=== PATIENT | female | born 1990 | race Caucasian/White ===

== ENCOUNTER → 2024-04-09 | Outpatient (CLI) | payer OTHER, MEDICAID, SELFPAY ==
[2024-04-10 09:52] LABS: BVAG Candida Positive (Negative); Bacterial Vaginosis Markers Positive (Negative); Candida glabrata Negative (Negative); Candida krusei PCR Negative (Negative); Trichomonas Negative (Negative)
== END | disposition home or self-care (01) ==
LOC: SLDO 15:43
PROVIDERS: Referring Provider Specialist; Visit Provider Specialist
DX: B37.89 Other sites of candidiasis (principal); N76.0 Acute vaginitis; A59.01 Trichomonal vulvovaginitis
CPT/HCPCS: 81514

== ENCOUNTER → 2024-06-17 | Outpatient (CLI) | payer OTHER, SELFPAY ==
[2024-06-18 10:13] LABS: BVAG Candida Negative (Negative); Bacterial Vaginosis Markers Positive (Negative); Candida glabrata Negative (Negative); Candida krusei PCR Negative (Negative); Trichomonas Negative (Negative)
== END | disposition home or self-care (01) ==
LOC: SLDO 14:16
PROVIDERS: Referring Provider Physician Assistant Medical; Visit Provider Physician Assistant Medical
DX: B37.89 Other sites of candidiasis (principal); N76.0 Acute vaginitis; A59.01 Trichomonal vulvovaginitis
CPT/HCPCS: 81514

== ENCOUNTER → 2024-08-03 | Outpatient (CLI) | payer OTHER, SELFPAY ==
[2024-08-04 07:18] LABS: BVAG Candida Negative (Negative); Bacterial Vaginosis Markers Positive (Negative); Candida glabrata Negative (Negative); Candida krusei PCR Negative (Negative); Trichomonas Negative (Negative)
== END | disposition home or self-care (01) ==
LOC: SLDO 15:44
PROVIDERS: Referring Provider Physician Assistant Medical; Visit Provider Physician Assistant Medical
DX: A59.01 Trichomonal vulvovaginitis (principal); B37.89 Other sites of candidiasis; N76.0 Acute vaginitis
CPT/HCPCS: 81514

== ENCOUNTER 2025-04-13 13:52 | Emergency (ER) | payer OTHER, MEDICAID, SELFPAY ==
[2025-04-13 14:37] VITALS: BP 128/75; PULSE 109; RESP 18; TEMP 36.6; O2SAT 99; BMI 19.2
--- NOTE | 2025-04-13 14:58 | PD.EDRME ---
Rapid Medical Screening Exam RME Arrival date/time: 04/13/25 13:52 Chief Complaint: Flu Like Symptoms Vital signs: Vital Signs Temperature 97.9 F 04/13/25 14:37 Pulse Rate 109 H 04/13/25 14:37 Respiratory Rate 18 04/13/25 14:37 Blood Pressure 128/75 04/13/25 14:37 Pulse Oximetry (%) 99 04/13/25 14:37 Oxygen Delivery Method Room Air 04/13/25 14:37 Pulse ox room air is 99% Vital signs reviewed by provider: Yes
--- NOTE | 2025-04-13 15:26 | XR_ITS ---
EXAMINATION: PA lateral chest 2 views TECHNIQUE: Upright PA lateral chest 2 views Date and time: April 13, 2025, 1551 hours, comparison March 16, 2019 INDICATIONS: Dizziness coughing today. FINDINGS: Normal heart size Lungs are clear Moderate hyperexpansion Intact osseous structures IMPRESSION: Moderate hyperexpansion No pneumonia or pulmonary edema
--- NOTE | 2025-04-13 15:29 | PD.EDURI ---
Upper Respiratory Inf. RME/HPI General Chief Complaint: Flu Like Symptoms Stated Complaint: Cough X 2 weeks, shaky, lightheaded Time Seen by Provider: 04/13/25 15:05 Source: patient Arrival date/time: 04/13/25 13:52 Mode of arrival: ambulatory Limitations: no limitations RME / HPI Complaint: cough and sore throat Onset (ago): week(s) (2 weeks) Duration: constant Severity: moderate Relieving factors: nothing Exacerbating factors: other (Coughing) Able to tolerate fluids by mouth: Yes Context: sick contacts RME / HPI Narrative: 04/13/25 13:52 Related Data Home Medications ?Medication ?Instructions ?Recorded ?Confirmed fexofenadine 180 mg tablet 180 mg PO QDAY 05/26/20 05/26/20 (Chelsy Allergy) gabapentin 300 mg tablet 300 mg PO QDAY 05/26/20 05/26/20 sertraline 100 mg tablet (Zoloft) 100 mg PO QDAY 05/26/20 05/26/20 Previous Rx's ?Medication ?Instructions ?Recorded hydrocodone 5 mg-acetaminophen 325 1 tab PO Q8H PRN pain #6 tabs 05/26/20 mg tablet ([facility]) promethazine-DM 6.25 mg-15 mg/5 mL 5 ml PO Q6H PRN cough #118 mL 04/13/25 oral syrup Allergies Allergy/AdvReac Type Severity Reaction Status Date / Time No Known Allergies Allergy Unknown Verified 04/13/25 13:56 Review of Systems Constitutional Constitutional: Reports system reviewed and no additional complaints, except as documented Eyes Eyes: Reports system reviewed and no additional complaints, except as documented, Denies dry eyes, Denies exophthalmos and Reports floaters Cardiovascular Cardiovascular: Denies chest pain with activity and Denies claudication Past Medical History Past Medical History Comments PMH COMMENT: No significant past medical history ED Exam Narrative Physical exam: Patient is alert and oriented. She is in no apparent distress. She does have shaking hands and this is left and right. Patient appears to be tearful. Otherwise clear to auscultation and the heart is regular rhythm and rate. The abdomen soft nontender without any apparent mass and there is no guarding as well as negative for rebound tenderness. General Limitations: Present no limitations General appearance: Present alert and in no apparent distress Head Head exam: Present atraumatic and normocephalic Eye Eye exam: Present normal appearance and EOMI ENT ENT exam: Present normal exam Neck Neck exam: Present normal inspection Chest Chest inspection: Present normal inspection Respiratory Respiratory exam: Present normal lung sounds bilaterally Cardiovascular Cardiovascular exam: Present regular rate and normal rhythm Abdominal Exam Abdominal exam: Present soft Rectal Exam Rectal exam: Present deferred Extremities Exam Extremities exam: Present normal inspection Back Exam Back exam: Present normal inspection Neurological Exam Neurological exam: Present alert and oriented X3 Psychiatric Psychiatric exam: Present normal affect and normal mood Skin Skin exam: Present warm, dry, intact and normal color Course Course Course Narrative: Patient will have a CBC, CMP, flu, UA, and a chest x-ray two-view. Quality Measures none Orders Category Date Time Status CXR2 [XR chest 2V] Stat Exams 04/13/25 15:26 Completed CBC Stat Lab 04/13/25 15:37 Completed CMP [Comprehensive Metabolic Panel] Stat Lab 04/13/25 15:37 Completed FLU A&B [Influenza A & B Rapid Panel] Stat Lab 04/13/25 15:45 Completed UA [Urinalysis] Stat Lab 04/13/25 15:52 Completed Ordered Vital Signs Vital signs: Vital Signs Temperature 97.9 F 04/13/25 14:37 Pulse Rate 109 H 04/13/25 14:37 Respiratory Rate 18 04/13/25 14:37 Blood Pressure 128/75 04/13/25 14:37 Pulse Oximetry (%) 99 04/13/25 14:37 Oxygen Delivery Method Room Air 04/13/25 14:37 Pulse ox room air is 99% Upper Respiratory Infection MDM Narrative MDM Narrative:: Patient will be informed of her labs and she will be discharged in no apparent distress the patient told me afterwards that she possibly might have taken too much cough medication and this could have contributed to her shakes as well as her anxiety although I will not diagnose her as having anxiety. She has to follow-up with her primary care physician within 1 week. Patient data External records reviewed:: Other (specify) (NA) Clinical information provided by:: patient Social determinants that could affect healthcare access:: none (NA) Patient has the following chronic illnesses:: Negative How is presenting disease/condition affected by chronic disease/condition?: no chronic disease Evaluation data The following diagnostics were reviewed and interpreted by me:: lab results and radiology exam(s) Lab and/or radiology exams considered but not ordered:: NA Interpretation Summary: NA Medications / Prescriptions Medications or Prescriptions considered but not ordered:: NA Medication administrations:: NA Consultations Consultation(s) initiated? (list below): No Consultation #1 (Physician, Specialty, Details): NA Diagnosis Upper Respiratory Differential Diagnosis: upper respiratory infection, viral infection, bronchitis, influenza and pharyngitis Most likely diagnosis given after review of the tests above:: Viral syndrome Admission Indicated Admission indicated?: not indicated Explain why admission is indicated or not indicated:: N/A Admission Request Was there a request for admission?: No Admission Attestation Admission request attestation: N/A Disposition Plan Disposition Plan: Discharge Discharge Attestation Discharge Attestation: The patient and all family members were given an opportunity to ask questions and understood the discharge instructions. Discharge instructions specifically effects, indications for sooner follow up or return to the emergency department, and the expected course of current diagnosis. Patient condition: Stable Discharge Plan Plan Patient Disposition: HOME (Self Care) Discharge Disposition comment: Patient is discharged in no apparent distress Patient condition on transfer: Stable Prescriptions/Referrals Prescriptions/Med Rec: New promethazine-DM 6.25-15 mg/5 mL syrup 5 ml PO Q6H PRN (Reason: cough) Qty: 118 0RF No Action sertraline [Zoloft] 100 mg Tablet 100 mg PO QDAY fexofenadine [Chelsy Allergy] 180 mg Tablet 180 mg PO QDAY gabapentin 300 mg Tablet 300 mg PO QDAY hydrocodone-acetaminophen [[facility]] 5-325 mg tablet 1 tab PO Q8H MDD 4 PRN (Reason: pain) Qty: 6 0RF Referrals: Ivan Clarke MD [Primary Care Provider, Internal Medicine] - In 1 week Problem List Clinical Impression: Acute viral syndrome Patient/Caregiver Discharge Instructions Discharge Activity: activity as tolerated Education Materials: ED Viral Syndrome (Adult) Print Language: Thai Stand Alone Forms: Laura Award Info., Patient Portal Info Letter PA/FLUTE GRINDER Supervising Physician PA/FLUTE GRINDER Supervising Physician: CRISTIAN
[2025-04-13 15:57] LABS: Basophils # (Auto) 0.0 Thou/mm3 (0.0-0.2); Basophils % (Auto) 0 % (0-2.5); Eosinophils # (Auto) 0.0 Thou/mm3 (0.0-0.5); Eosinophils % (Auto) 0 % (0-10); Hematocrit 38.3 % (36.0-46.0); Hemoglobin 13.2 g/dL (12.0-16.0); Immature Granulocytes Auto 0.04 Thou/mm3 (0.00-0.00); Lymphocytes # (Auto) 1.1 Thou/mm3 (1.0-4.8); Lymphocytes % (Auto) 11 % (10-50); Mean Corpuscular HGB Conc 34.5 g/dl (31.0-37.0); Mean Corpuscular Hemoglobin 29.8 pg (25.0-35.0); Mean Corpuscular Volume 87 fL (80-100); Monocytes # (Auto) 0.4 Thou/mm3 (0.0-0.8); Monocytes % (Auto) 4 % (0-12); Neutrophils # (Auto) 8.5 Thou/mm3 (1.8-7.7); Neutrophils % (Auto) 84 % (37-80); Nucleated Red Blood Cell # 0.00 Thou/mm3 (0.00-0.00); Nucleated Red Blood Cell % 0 /100 WBC (0); Platelet Count 253 Thou/mm3 (140-440); RDW Standard Deviation 39.2 fL (36.4-46.3); Red Blood Count 4.43 Miln/mm3 (4.00-5.20); White Blood Count 10.0 Thou/mm3 (3.6-11.0)
[2025-04-13 15:57] LABS: Collection Type, Urine Clean Catch
[2025-04-13 16:05] LABS: Bacteria,Urine Rare; Bilirubin,Urine Negative (Negative); Blood,Urine Negative (Negative); Clarity,Urine Clear (Clear/Hazy); Color,Urine Lt-Yellow (Lt Yel-Yel); Glucose, Urine Negative (Negative); Ketones,Urine Negative (Negative); Leukocyte Esterase,Urine Negative (Negative); Nitrite,Urine Negative (Negative); PH,Urine 6.5 (5.0-7.0); Protein,Urine Negative (Neg - Trace); RBC,Urine < 1 /hpf (0-3); Specific Gravity,Urine 1.006 (1.001-1.035); Squamous Epithelial Cell,Urine 1 /hpf (0-5); Urobilinogen,Urine Negative mg/dL (0.0-1.0); WBC,Urine < 1 /hpf (0-5)
[2025-04-13 16:23] LABS: Alanine Aminotransferase 30 U/L (10-49); Albumin, Serum 5.1 gm/dL (3.5-5.0); Albumin/Globulin Ratio 1.7 (1.2-2.2); Alkaline Phosphatase 43 U/L (46-116); Anion Gap 11 (7-16); Aspartate Amino Transferase 32 U/L (0-34); BUN/Creatinine Ratio 7 Ratio (12-20); Bilirubin,Total 0.3 mg/dL (0.3-1.2); Blood Urea Nitrogen 6 mg/dL (9-23); Calcium 9.7 mg/dL (8.3-10.6); Calcium (Corrected) 9.7 mg/dL (8.5-10.1); Carbon Dioxide 25.7 mMol/L (20.0-31.0); Chloride 106 mMol/L (98-107); Creatinine (Component) 0.9 mg/dL (0.6-1.3); Estimated Creatinine Clearance 70.1 mL/min (>60); Globulin 3.0 gm/dL (2.3-3.5); Glucose 91 mg/dL (74-106); Osmolality,Calculated 282 (275-295); Potassium 4.3 mMol/L (3.4-5.1); Sodium 143 mMol/L (136-145); Total Protein 8.1 gm/dL (5.7-8.2); eGFR > 60 See Note
[2025-04-13 16:33] LABS: Influenza A Ag Negative; Influenza B Ag Negative
--- NOTE | 2025-04-13 17:19 | PD.EDURI ---
Upper Respiratory Inf. RME/HPI General Chief Complaint: Flu Like Symptoms Stated Complaint: Cough X 2 weeks, shaky, lightheaded Time Seen by Provider: 04/13/25 15:05 Source: patient Arrival date/time: 04/13/25 13:52 Mode of arrival: ambulatory Limitations: no limitations RME / HPI Severity: moderate Relieving factors: nothing Exacerbating factors: other (Coughing) Context: sick contacts RME / HPI Narrative: 04/13/25 13:52 Related Data Home Medications ?Medication ?Instructions ?Recorded ?Confirmed fexofenadine 180 mg tablet 180 mg PO QDAY 05/26/20 05/26/20 (Chelsy Allergy) gabapentin 300 mg tablet 300 mg PO QDAY 05/26/20 05/26/20 sertraline 100 mg tablet (Zoloft) 100 mg PO QDAY 05/26/20 05/26/20 Previous Rx's ?Medication ?Instructions ?Recorded hydrocodone 5 mg-acetaminophen 325 1 tab PO Q8H PRN pain #6 tabs 05/26/20 mg tablet ([facility]) promethazine-DM 6.25 mg-15 mg/5 mL 5 ml PO Q6H PRN cough #118 mL 04/13/25 oral syrup Allergies Allergy/AdvReac Type Severity Reaction Status Date / Time No Known Allergies Allergy Unknown Verified 04/13/25 13:56 Review of Systems Constitutional Constitutional: Reports system reviewed and no additional complaints, except as documented Eyes Eyes: Reports system reviewed and no additional complaints, except as documented, Denies dry eyes, Denies exophthalmos and Reports floaters Cardiovascular Cardiovascular: Denies chest pain with activity and Denies claudication Past Medical History Past Medical History Comments PMH COMMENT: No apparent significant past medical history ED Exam Narrative Physical exam: Patient is in no apparent respiratory distress. Lungs are clear to auscultation throughout all lung [place]ett. The heart is regular rhythm and rate. The skin is warm and dry and the patient retains full range of motion of all her extremities and there is no apparent neurofocal deficit. Posterior pharynx is pink and moist and the TMs are well. General Limitations: Present no limitations General appearance: Present alert and in no apparent distress Head Head exam: Present atraumatic and normocephalic Eye Eye exam: Present normal appearance and EOMI ENT ENT exam: Present normal exam and normal oropharynx Neck Neck exam: Present normal inspection and full ROM Chest Chest inspection: Present normal inspection Respiratory Respiratory exam: Present normal lung sounds bilaterally Cardiovascular Cardiovascular exam: Present regular rate and normal rhythm Abdominal Exam Abdominal exam: Present soft (The abdomen is soft nontender without any apparent masses.) Rectal Exam Rectal exam: Present deferred Extremities Exam Extremities exam: Present normal inspection and full ROM Back Exam Back exam: Present normal inspection and full ROM Neurological Exam Neurological exam: Present alert and oriented X3 Psychiatric Psychiatric exam: Present normal affect and normal mood Skin Skin exam: Present warm, dry, intact and normal color Course Course Course Narrative: Patient will have a CBC, CMP, flu, UA, and a chest x-ray two-view. Quality Measures none Orders Category Date Time Status CXR2 [XR chest 2V] Stat Exams 04/13/25 15:26 Completed CBC Stat Lab 04/13/25 15:37 Completed CMP [Comprehensive Metabolic Panel] Stat Lab 04/13/25 15:37 Completed FLU A&B [Influenza A & B Rapid Panel] Stat Lab 04/13/25 15:45 Completed UA [Urinalysis] Stat Lab 04/13/25 15:52 Completed ordered Reevaluation(s) Reevaluation #1: na Vital Signs Vital signs: Vital Signs Temperature 97.9 F 04/13/25 14:37 Pulse Rate 109 H 04/13/25 14:37 Respiratory Rate 18 04/13/25 14:37 Blood Pressure 128/75 04/13/25 14:37 Pulse Oximetry (%) 99 04/13/25 14:37 Oxygen Delivery Method Room Air 04/13/25 14:37 Pulse ox room air 99% Upper Respiratory Infection MDM Narrative MDM Narrative:: Patient will be discharged in no apparent distress. She will be given the option for taking 2 to 3 days off of work. I do not see any reason for antibiotics at this point in time. Patient data External records reviewed:: Other (specify) (NA) Clinical information provided by:: patient Social determinants that could affect healthcare access:: none Patient has the following chronic illnesses:: NA How is presenting disease/condition affected by chronic disease/condition?: no chronic disease Evaluation data The following diagnostics were reviewed and interpreted by me:: lab results and radiology exam(s) Lab and/or radiology exams considered but not ordered:: All labs are within their normal limits. Interpretation Summary: Radiology demonstrates no apparent infectious process taking place. Medications / Prescriptions Medications or Prescriptions considered but not ordered:: Today Medication administrations:: NA Consultations Consultation(s) initiated? (list below): No Diagnosis Upper Respiratory Differential Diagnosis: upper respiratory infection, croup, otitis media, viral infection, bronchitis and other Most likely diagnosis given after review of the tests above:: VIRAL SYNDROME Admission Indicated Admission indicated?: not indicated Explain why admission is indicated or not indicated:: NA Admission Request Was there a request for admission?: No Admission Attestation Admission request attestation: NA Disposition Plan Disposition Plan: Discharge Discharge Attestation Discharge Attestation: The patient and all family members were given an opportunity to ask questions and understood the discharge instructions. Discharge instructions specifically effects, indications for sooner follow up or return to the emergency department, and the expected course of current diagnosis. Patient condition: Stable Discharge Plan Plan Patient Disposition: HOME (Self Care) Discharge Disposition comment: Patient is discharged in no apparent distress Patient condition on transfer: Stable Prescriptions/Referrals Prescriptions/Med Rec: New promethazine-DM 6.25-15 mg/5 mL syrup 5 ml PO Q6H PRN (Reason: cough) Qty: 118 0RF No Action sertraline [Zoloft] 100 mg Tablet 100 mg PO QDAY fexofenadine [Chelsy Allergy] 180 mg Tablet 180 mg PO QDAY gabapentin 300 mg Tablet 300 mg PO QDAY hydrocodone-acetaminophen [[facility]] 5-325 mg tablet 1 tab PO Q8H MDD 4 PRN (Reason: pain) Qty: 6 0RF Referrals: Ivan Clarke MD [Primary Care Provider, Internal Medicine] - In 1 week Problem List Clinical Impression: Acute viral syndrome Patient/Caregiver Discharge Instructions Education Materials: ED Viral Syndrome (Adult) Print Language: Albanian Stand Alone Forms: Laura Award Info., Patient Portal Info Letter PA/GUNSMITH APPRENTICE Supervising Physician PA/GUNSMITH APPRENTICE Supervising Physician: CRISTIAN
== END 2025-04-13 18:07 | disposition home or self-care (01) ==
PROVIDERS: Physician Assistant; Emergency Provider Emergency Medicine; PCP Internal Medicine
DX: B34.9 Viral infection, unspecified (principal)
CPT/HCPCS: 36415; 71046; 80053; 81001; 85025; 87502; 99283